=== PATIENT | male | born 1975 | race Caucasian/White ===

== ENCOUNTER 2017-01-02 11:54 | Outpatient (CLI) ==
--- NOTE | 2017-01-02 14:19 | MRI ---
EXAM: MRI lumbar spine without and with IV contrast. DATE: 01/02/2017. HISTORY: Low back pain with radiculopathy. Previous lumbar surgery. TECHNIQUE: Sagittal and axial T1W, T2W, and T1W postcontrast sequences of the lumbar spine along wi th sagittal IR and coronal T2W sequences were obtained using 1.2 Dalia magnet. Contrast: Omniscan - 20 ml IV. COMPARISON: CT abdomen/pelvis 12/31/2010. FINDINGS: There are five [id number] lumbar vertebra. Minimal (2 degrees) leftward curvature o f the lumbar spine is observed. A 3 mm anterior subluxation of L4 relative to L3 and 3.2 mm anterol isthesis of L5 relative to L4 are demonstrated. No other subluxation, acute fracture, osseous malig suzi, or pars interarticularis defect is identified. Lumbar vertebra are normal in height. Small/ moderate osteophytes are visible at multiple levels. T2W/T1W bright, 9.8 mm focus in the L1 body an d similar 4 x 8 mm focus in the L2 body are likely benign hemangiomas. Degenerative endplate change s are most pronounced at L3-4 and L4-5. Bone marrow signal is overall normal. Minor L1-2, moderate L3-4, moderate L4-5, and Modic L5-S1 disc space narrowing is detected. No sacral fracture or stress reaction is identified. SI joints are unremarkable. Conus medullaris terminates at L1-2. Visible spinal cord is normal. No retroperitoneal lymphadenopathy, paraspinal mass, or aortic aneurysm is evident. Left renal vein courses posterior to the aorta (normal variation). Paraspinal musculature is symmetric bilaterally . Visible portions of the liver, spleen, adrenal glands and kidneys reveal no definitive abnormalit y. Segmental analysis: T12-L1: Normal. L1-2: Small left foraminal to far lateral disc bulge and minor facet disease cause moderate left fo raminal narrowing. No central canal stenosis. L2-3: Small concentric disc bulge and mild facet arthropathy cause mild central canal stenosis, mil d right foraminal stenosis, and moderate left foraminal narrowing. Left L2 nerve root contacts the disc bulge near the lateral margin of the foramen. L3-4: S/P left microlaminectomy and partial left facet resection. Minor anterior subluxation of L4 , spondylotic ridge at the L3 inferior endplate, moderate concentric disc bulge (left paramidline an nular fissure), mild right facet arthropathy, and mild ligamentum flavum hypertrophy cause mild cent ral canal stenosis, moderate/marked right foraminal stenosis, and moderate left foraminal narrowing. Each L3 nerve root contacts the disc bulge near the lateral margin of the foramen. L4-5: Minor anterior subluxation of L5, spondylotic ridges at L4 and L5 endplates, moderate concent abdiel disc bulge, and mild facet arthropathy cause triangulation of the canal, moderate right foramina l stenosis, and marked left foraminal stenoses. Each L4 nerve root contacts the disc bulge in the f oramen. Left L4 nerve root may be compressed in the foramen. L5-S1: Large concentric disc bulge, superimposed midline disc protrusion (3.3 mm AP by 22 mm transv erse), small spondylotic ridge at the L5 inferior plate, and minor facet arthropathy cause mild cent ral canal stenosis and marked bilateral foraminal stenoses. Each L5 nerve root appears compressed i n the foramen. Disc protrusion does not displace the S1 nerve roots. IMPRESSIONS: 1. Lumbar spine moderate spondylosis, mild facet arthropathy, minor subluxations, and multilevel DD D. 2. Multilevel foraminal stenoses. Left L2, both L3, both L4, and both L5 nerve roots compromised n ear the foramen, and may be sources for pain/radiculopathy. 3. Mild central canal stenoses at L2-3, L3-4, and L5-S1. Minor central stenosis at L4-5. 4. Chronic Schmorl's nodes at L3, L4, and L5. 5. Benign hemangiomas in L1 and L2 bodies.
== END 2017-01-02 11:55 | disposition home or self-care (01) ==
LOC: RAD 11:54
PROVIDERS: ATTEND Family Medicine
DX: M54.40 Lumbago with sciatica, unspecified side (principal)

== ENCOUNTER 2018-06-08 08:52 | Outpatient (CLI) ==
[2018-04-22 14:07] VITALS: BMI 32.8
--- NOTE | 2018-06-08 09:33 | DI ---
EXAM: Five views of the lumbar spine. History: Lower back pain with left sided sciatica Comparison: CT lumbar spine 04/22/2018 Findings: Cholecystectomy clips. No acute fracture. 3 mm retrolisthesis of L3 on L4 and 2 mm retro listhesis of L4 on L5. Severe disc space narrowing at L3-L4, L4-L5 and L5-S1 with endplate sclerosis , osteophyte formation and vacuum disc phenomenon. Moderate to severe facet hypertrophy within the l ower lumbar spine. Impression: 1. No acute osseous abnormality of the lumbar spine. 2. Degenerative changes.
== END 2018-06-08 08:53 | disposition home or self-care (01) ==
LOC: RAD 08:52
PROVIDERS: ATTEND Family Medicine
DX: M54.42 Lumbago with sciatica, left side (principal); G89.29 Other chronic pain